=== PATIENT | male | born 1950 | race African-American/Black ===

== ENCOUNTER 2022-01-25 16:07 | Inpatient (IN) | payer MEDICARE, MEDICAID ==
[~2022-01-25] VITALS: Ht 180.3 cm; Wt 104.4 kg
[~2022-01-25 16:07] MED LIST: ASPI-1406; GABA800T97 PO; HYDR25TA; SIMV-43; TOPXL5; TRAZADONE
[2022-01-25 17:29] LABS: HEMATOCRIT. 38.8 % (42.0-52.0); HEMOGLOBIN. 12.5 g/dL (14.0-18.0); MEAN CORPUSCULAR HEMOGLOBIN 25.9 pg (28.0-32.0); MEAN CORPUSCULAR VOLUME 80.4 fL (80.0-94.0); PLATELET 142 x1000/uL (130-400); RED BLOOD CELL COUNT 4.83 mill/uL (4.7-6.1); RED CELL DISTRIBUTION WIDTH 14.5 % (11.6-14.6)
[2022-01-25 17:33] LABS: CHLORIDE 108 mEq/L (98-107)
[2022-01-25 18:04] LABS: PLATELET ESTIMATE NORMAL
[2022-01-25] MEDS ORDERED: CEFTRIAXONE 1 G PREMIX 50 ML IV ONE (18:45)
[2022-01-25] MEDS ORDERED: AZITHROMYCIN 500MG/250ML 250 ML IV ONE (18:45)
[2022-01-25 23:40] VITALS: BP 121/81
[2022-01-26] VITALS: BP 121/81
[2022-01-26] MEDS ORDERED: ENOXAPARIN 40MG/0.4ML SYR SUBCUT SCH (01:15)
[2022-01-26] MEDS ORDERED: MAGNESIUM/ALUMINUM HYDROXIDE/SIMETHICONE 30ML UDC PO PRN (01:15)
[2022-01-26] MEDS ORDERED: HYDROCODONE/ACETAMINOPHEN 5/325MG TABLET PO PRN (01:15)
[2022-01-26] MEDS ORDERED: ACETAMINOPHEN 325MG TABLET PO PRN (01:15)
[2022-01-26] MEDS ORDERED: MORPHINE SULFATE 2 MG/ML CPJ (NOT FOR IM USE) IV PRN (01:15)
[2022-01-26] MEDS ORDERED: DOCUSATE SODIUM 100MG CAPSULE PO PRN (01:15)
[2022-01-26] MEDS ORDERED: ONDANSETRON HCL 4MG/2ML INJ IV PRN (01:15)
[2022-01-26] MEDS ORDERED: GUAIFENESIN 200MG/10ML SUGAR FREE UDC PO PRN (01:15)
[2022-01-26] MEDS ORDERED: CLONIDINE 0.1MG TABLET PO PRN (01:15)
[2022-01-26] MEDS ORDERED: NALOXONE HCL 0.4 MG/ML 1ML VIAL IV PRN (01:30)
[2022-01-26 04:00] VITALS: BP 103/76
[2022-01-26 07:57] VITALS: BP 134/84
[2022-01-26] MEDS ORDERED: ASPIRIN 81MG EC TABLET PO SCH (09:00)
[2022-01-26] MEDS ORDERED: ENOXAPARIN 30MG/0.3ML SYR SUBCUT SCH (09:00)
[2022-01-26] MEDS ORDERED: AMLODIPINE 10MG TABLET PO SCH (09:00)
[2022-01-26 10:17] VITALS: BP 134/84
== END 2022-01-26 11:15 | disposition home or self-care (01) | DRG 137 ==
LOC: ER 16:07 → EDBEDREQ 17:46 → 7EST 20:03 → EDBEDREQ 20:04 → EDBEDREQTM 20:06 → ENRESERV 22:05
PROVIDERS: ADMIT Hospitalist; ATTEND Hospitalist
DX: U07.1 COVID-19 (principal); J12.82 Pneumonia due to coronavirus disease 2019; Z89.611 Acquired absence of right leg above knee; I10 Essential (primary) hypertension; R07.89 Other chest pain
CPT/HCPCS: 36415; 71045; 80053; 83605; 83880; 84484; 85025; 87426; 93005; 99285; J0456; J0696; J1650